=== PATIENT | female | born 1990 | race Caucasian/White ===

== ENCOUNTER 2017-09-18 13:25 | Emergency (ER) | payer OTHER ==
--- NOTE | 2017-09-18 14:27 | ED ---
Female Urogenital HPI - General Chief complaint: Abdominal Pain Stated complaint: abdominal & back pain/18 wks preg Time Seen by Provider: 09/18/17 13:45 Source: patient Mode of arrival: ambulatory Limitations: no limitations - History of Present Illness Initial comments: Patient is a 26-year-old female presenting for abdominal pain. Patient states that she is 18 weeks with a confirmed ultrasound in 10 weeks. She states that over the last couple days, she has been having lower suprapubic abdominal pain which is described as stabbing as well as lower back pain and her urine has been very dark. However, she denies any dysuria as well as fevers or chills. She admits to chronic nausea and vomiting with this but denies any vaginal bleeding or abnormal vaginal discharge. Last Menstrual Period: 05/14/17 - Related Data Home Medications Medication Instructions Recorded Confirmed Acetaminophen [Tylenol 8 Hour] 650 mg PO Q4H PRN 09/18/17 09/18/17 Calcium Carbonate [Tums] 1,000 mg PO Q4H PRN 09/18/17 09/18/17 Docusate [Colace] 100 mg PO QID PRN 09/18/17 09/18/17 Methadone HCl [Methadone Intensol] 60 mg PO DAILY 09/18/17 09/18/17 Ondansetron HCl [Zofran] 8 mg PO Q6H PRN 09/18/17 09/18/17 Ondansetron [Zofran] 4 mg IM Q6H PRN 09/18/17 09/18/17 Drx-Aldz-Dppce Acid 1 cap PO DAILY 09/18/17 09/18/17 [-U Capsule (formulary)] Previous Rx's Medication Instructions Recorded Fluconazole [Diflucan] 150 mg PO DAILY #2 tab 09/18/17 Nitrofurantoin Monohyd/M-Cryst 100 mg PO Q12HR #9 cap 09/18/17 [Macrobid] Allergies Allergy/AdvReac Type Severity Reaction Status Date / Time amoxicillin Allergy Swelling Verified 09/18/17 13:59 cephalexin [From Keflex] Allergy Itching Verified 09/18/17 13:59 Penicillins Allergy Swelling Verified 09/18/17 13:59 sulfamethoxazole Allergy Itching Verified 09/18/17 13:59 [From Bactrim] trimethoprim [From Bactrim] Allergy Itching Verified 09/18/17 13:59 Review of Systems ROS Statement: Those systems with pertinent positive or pertinent negative responses have been documented in the HPI. Constitutional: Negative for chills, fatigue and fever. HENT: Negative for congestion. Respiratory: Negative for chest tightness, shortness of breath and wheezing. Cardiovascular: Negative for chest pain and palpitations. Gastrointestinal: Positive for abdominal pain, nausea/vomiting. Negative for diarrhea or constipation Genitourinary: Negative for dysuria. Negative for vaginal bleeding or discharge Musculoskeletal: Negative for neck pain and neck stiffness. Positive for lower back pain Skin: Negative for color change. Neurological: Negative for dizziness, speech difficulty, weakness and light- headedness. Psychiatric/Behavioral: Negative for agitation and confusion. The patient is not nervous/anxious. ROS Other: All systems not noted in ROS Statement are negative. Past Medical History Past Medical History: No Reported History History of Any Multi-Drug Resistant Organisms: None Reported Past Surgical History: Appendectomy, Orthopedic Surgery Additional Past Surgical History / Comment(s): r arm surg oral Past Psychological History: Depression Smoking Status: Current every day smoker Past Alcohol Use History: None Reported Past Drug Use History: None Reported General Exam - General Exam Comments Initial Comments: Physical Exam Constitutional: Pt is oriented to person, place, and time. Pt appears well- developed and well-nourished. No distress. HENT: Head: Normocephalic and atraumatic. Eyes: EOM are normal. Neck: Normal range of motion. Neck supple. Cardiovascular: Normal rate, regular rhythm, S1 normal, S2 normal and normal heart sounds. Exam reveals no gallop and no friction rub. No murmur heard. Pulmonary/Chest: Effort normal and breath sounds normal. No tachypnea and no bradypnea. No respiratory distress. No wheezes or rales noted. Abdominal: Soft. Bowel sounds are normal. Pt exhibits no shifting dullness, no distension, no pulsatile liver, no fluid wave, no abdominal bruit and no ascites. There is no tenderness. There is no rigidity, no rebound, no guarding, no tenderness at McBurney's point and negative Franklin's sign. Musculoskeletal: Normal range of motion. Neurological: Pt is alert and oriented to person, place, and time. No cranial nerve deficit. Skin: Skin is warm and dry. No rash noted. He is not diaphoretic. No erythema. No pallor. Psychiatric: He has a normal mood and affect. His behavior is normal. Thought content normal. Limitations: no limitations Course Vital Signs 09/18/17 09/18/17 09/18/17 13:36 15:59 17:15 Temperature 98.0 F 97.2 F L Pulse Rate 88 65 64 Respiratory 18 16 16 Rate Blood Pressure 120/71 98/46 115/60 O2 Sat by Pulse 97 99 100 Oximetry Medical Decision Making - Medical Decision Making Laboratory studies revealed that there is a significant transaminitis with AST measuring 218 and ALT measuring 260. This is discussed with the patient and she stated that she knew about this and has been told that she has hepatitis C. Additionally, urinalysis was positive for an infection although contaminated but because the patient is , she will be given Macrobid. Ultrasound was performed above the abdomen and the fetus and heart tones were noted and heart rate was noted to be higher than 130 bpm. Ultrasound evaluation did show some sludge but study was limited. Patient was evaluated multiple times and noted to be resting in bed comfortably in no acute distress. It is felt that because she knows the etiology of the transaminitis, she could be safely discharged with follow-up from gastroenterology.Explained all labs and diagnostic test results and that we will discharge the patient home and patient is to follow up with PCP in 1-2 days and return to the ED if symptoms worsen. Pt is agreeable to plan. - Lab Data Result diagrams: 09/18/17 14:13 09/18/17 14:13 Lab Results 09/18/17 09/18/17 09/18/17 Range/Units 14:13 14:13 14:13 WBC 8.9 (3.8-10.6) k/uL RBC 3.88 (3.80-5.40) m/uL Hgb 12.1 (11.4-16.0) gm/dL Hct 35.7 (34.0-46.0) % MCV 92.2 (80.0-100.0) fL MCH 31.1 (25.0-35.0) pg MCHC 33.8 (31.0-37.0) g/dL RDW 12.1 (11.5-15.5) % Plt Count 255 (150-450) k/uL Neutrophils % 70 % Lymphocytes % 24 % Monocytes % 4 % Eosinophils % 1 % Basophils % 0 % Neutrophils # 6.2 (1.3-7.7) k/uL Lymphocytes # 2.1 (1.0-4.8) k/uL Monocytes # 0.3 (0-1.0) k/uL Eosinophils # 0.1 (0-0.7) k/uL Basophils # 0.0 (0-0.2) k/uL Sodium 137 (137-145) mmol/L Potassium 4.1 (3.5-5.1) mmol/L Chloride 103 (98-107) mmol/L Carbon Dioxide 25 (22-30) mmol/L Anion Gap 9 mmol/L BUN 4 L (7-17) mg/dL Creatinine 0.53 (0.52-1.04) mg/dL Est GFR (MDRD) Af Amer >60 (>60 ml/min/1.73 sqM) Est GFR (MDRD) Non-Af >60 (>60 ml/min/1.73 sqM) Glucose 81 (74-99) mg/dL Calcium 9.1 (8.4-10.2) mg/dL Magnesium 1.7 (1.6-2.3) mg/dL Total Bilirubin 0.3 (0.2-1.3) mg/dL AST 218 H (14-36) U/L ALT 260 H (9-52) U/L Alkaline Phosphatase 77 (38-126) U/L Total Protein 5.9 L (6.3-8.2) g/dL Albumin 3.3 L (3.5-5.0) g/dL Urine Color Urine Appearance (Clear) Urine pH (5.0-8.0) Ur Specific [place] (1.001-1.035) Urine Protein (Negative) Urine Glucose (UA) (Negative) Urine Ketones (Negative) Urine Blood (Negative) Urine Nitrite (Negative) Urine Bilirubin (Negative) Urine Urobilinogen (<2.0) mg/dL Ur Leukocyte Esterase (Negative) Urine RBC (0-5) /hpf Urine WBC (0-5) /hpf Ur Squamous Epith Cells (0-4) /hpf Urine Bacteria (None) /hpf Urine Mucus (None) /hpf Blood Type O Positive Blood Type Recheck No Antibody Screen NEGATIVE Spec Expiration Date 09/21/2017 - 231209/18/17 Range/Units 14:13 WBC (3.8-10.6) k/uL RBC (3.80-5.40) m/uL Hgb (11.4-16.0) gm/dL Hct (34.0-46.0) % MCV (80.0-100.0) fL MCH (25.0-35.0) pg MCHC (31.0-37.0) g/dL RDW (11.5-15.5) % Plt Count (150-450) k/uL Neutrophils % % Lymphocytes % % Monocytes % % Eosinophils % % Basophils % % Neutrophils # (1.3-7.7) k/uL Lymphocytes # (1.0-4.8) k/uL Monocytes # (0-1.0) k/uL Eosinophils # (0-0.7) k/uL Basophils # (0-0.2) k/uL Sodium (137-145) mmol/L Potassium (3.5-5.1) mmol/L Chloride (98-107) mmol/L Carbon Dioxide (22-30) mmol/L Anion Gap mmol/L BUN (7-17) mg/dL Creatinine (0.52-1.04) mg/dL Est GFR (MDRD) Af Amer (>60 ml/min/1.73 sqM) Est GFR (MDRD) Non-Af (>60 ml/min/1.73 sqM) Glucose (74-99) mg/dL Calcium (8.4-10.2) mg/dL Magnesium (1.6-2.3) mg/dL Total Bilirubin (0.2-1.3) mg/dL AST (14-36) U/L ALT (9-52) U/L Alkaline Phosphatase (38-126) U/L Total Protein (6.3-8.2) g/dL Albumin (3.5-5.0) g/dL Urine Color Yellow Urine Appearance Cloudy H (Clear) Urine pH 6.5 (5.0-8.0) Ur Specific [place] 1.010 (1.001-1.035) Urine Protein Trace H (Negative) Urine Glucose (UA) Negative (Negative) Urine Ketones Negative (Negative) Urine Blood Large H (Negative) Urine Nitrite Negative (Negative) Urine Bilirubin Negative (Negative) Urine Urobilinogen <2.0 (<2.0) mg/dL Ur Leukocyte Esterase Large H (Negative) Urine RBC 125 H (0-5) /hpf Urine WBC 53 H (0-5) /hpf Ur Squamous Epith Cells 46 H (0-4) /hpf Urine Bacteria Occasional H (None) /hpf Urine Mucus Occasional H (None) /hpf Blood Type Blood Type Recheck Antibody Screen Spec Expiration Date Disposition Clinical Impression: Urinary tract infection affecting Disposition: OTHER INSTITUTION NOT DEFINED Condition: Good Instructions: Urinary Tract Infection in (ED) Prescriptions: Fluconazole [Diflucan] 150 mg PO DAILY #2 tab Nitrofurantoin Monohyd/M-Cryst [Macrobid] 100 mg PO Q12HR #9 cap Referrals: None,Stated [Primary Care Provider] - 1-2 days Amanda Morin MD [STAFF PHYSICIAN] - 1-2 days Joan Vasquez DO [Doctor of Osteopathic Medicine] - 1-2 days Time of Disposition: 16:52 - Out of Hospital Transfer - Req. Specs Out of Hospital Transfer - Requested Specifics: Other Non-Acute ([facility])
[2017-09-18 14:34] LABS: Appearance,Urine Cloudy (Clear); Bacteria,Urine Occasional /hpf; Bilirubin,Urine Negative (Negative); Blood,Urine Large (Negative); Color,Urine Yellow; Glucose,Urine (UA) Negative (Negative); Ketones,Urine Negative (Negative); Leukocyte Esterase,Urine Large (Negative); Mucus,Urine Occasional /hpf; Nitrite,Urine Negative (Negative); PH, Urine 6.5 (5.0-8.0); Protein,Urine Trace (Negative); RBC,Urine 125 /hpf (0-5); Squamous Epithelial Cell,Urine 46 /hpf (0-4); Urobilinogen,Urine <2.0 mg/dL (<2.0); WBC,Urine 53 /hpf (0-5)
[2017-09-18 14:36] LABS: Basophils % (A) 0 %; Eosinophils # (A) 0.1 k/uL (0-0.7); Eosinophils % (A) 1 %; HCT 35.7 % (34.0-46.0); HGB 12.1 gm/dL (11.4-16.0); Lymphocytes # (A) 2.1 k/uL (1.0-4.8); Lymphocytes % (A) 24 %; MCH 31.1 pg (25.0-35.0); MCHC 33.8 g/dL (31.0-37.0); MCV 92.2 fL (80.0-100.0); Monocytes # (A) 0.3 k/uL (0-1.0); Monocytes % (A) 4 %; Neutrophils # (A) 6.2 k/uL (1.3-7.7); Neutrophils % (A) 70 %; Platelet Count 255 k/uL (150-450); RBC 3.88 m/uL (3.80-5.40); RDW 12.1 % (11.5-15.5); WBC 8.9 k/uL (3.8-10.6)
[2017-09-18 14:41] LABS: ALT 260 U/L (9-52); AST 218 U/L (14-36); Albumin 3.3 g/dL (3.5-5.0); Alkaline Phosphatase 77 U/L (38-126); Anion Gap 9 mmol/L; Blood Urea Nitrogen 4 mg/dL (7-17); Calcium 9.1 mg/dL (8.4-10.2); Carbon Dioxide 25 mmol/L (22-30); Chloride 103 mmol/L (98-107); Glucose 81 mg/dL (74-99); Magnesium 1.7 mg/dL (1.6-2.3); Potassium 4.1 mmol/L (3.5-5.1); Sodium 137 mmol/L (137-145); Total Bilirubin 0.3 mg/dL (0.2-1.3); Total Protein 5.9 g/dL (6.3-8.2)
--- NOTE | 2017-09-18 15:56 | US ---
EXAMINATION TYPE: US abdomen limited DATE OF EXAM: 09/18/2017 COMPARISON: NONE CLINICAL HISTORY: Elevated LFTS - evaluation of liver and gallbladder. Patient is not NPO EXAM MEASUREMENTS: Liver Length: 15.9 cm Gallbladder Wall: 0.2 cm CHD: 0.4 cm Right Kidney: 11.6 x 5.3 x 5.3 cm Pancreas: Body and tail obscured by overlying bowel gas Liver: wnl Gallbladder: Internal mobile echogenic echoes which could represent sludge Evidence for sonographic Franklin's sign: neg CHD: wnl Right Kidney: wnl There is no ascites. IMPRESSION: Possible tumefactive sludge or stones within the gallbladder. Some limitations in the [place]
[2017-09-18 16:00] VITALS: RESP 16
--- NOTE | 2017-09-18 16:01 | US ---
EXAMINATION TYPE: US OB >= 14 wk fetus second trimester DATE OF EXAM: 09/18/2017 COMPARISON: None CLINICAL HISTORY: Pain Pain, no bleeding TECHNIQUE: Transabdominal (TA) emergently GESTATIONAL AGE / DATING Physician Established: (18 weeks/1 days) EDC: 02/18/2018 Dates by Current Scan: (18 weeks/2 days) EDC: 02/17/2018 SURVEY IUP: Single PLACENTA: Anterior PREVIA: No Previa YOSI: 11.7 cm Normal CERVICAL LENGTH (transabdominal: norm > 3.0cm): 4.3 cm BIOMETRY PRESENTATION: Variable LIE: Transverse with head maternal Rt BPD: 4.0 cm 18 weeks / 1 days HC: 15.1 cm 18 weeks / 1 days AC: 13.2 cm 18 weeks / 5 days FL: 2.7 cm 18 weeks / 1 days ESTIMATED WEIGHT IN GRAMS: 238.4 grams ESTIMATED WEIGHT IN LBS/OZ: 0 lbs. 8 oz. WEIGHT PERCENTAGE BASED ON ESTABLISHED DATES: 61.9% HC/AC: 1.1 Normal FL/AC: 20.4 HEART RATE: 129 bpm RHYTHM: Normal Live single IUP measuring 18 weeks 2 days. Single live intrauterine gestation is seen. Variable prese ntation to fetus is noted. Amniotic fluid index is within normal limits. There is no ultrasound evide nce for placenta previa. biometry measurements are concordant and felt within normal limits. IMPRESSION: As above, no complication is evident
[2017-09-18] MEDS ORDERED: NITROFURANTOIN MONOHYD/M-CRYST 100 MG CAP PO STA (16:45)
[2017-09-18 17:16] VITALS: BP 115/60; PULSE 64; TEMP 97.2
== END 2017-09-18 17:24 | disposition other institution (70) ==
LOC: EC 13:25
DX: O23.42 Unspecified infection of urinary tract in pregnancy, second trimester (principal); O26.892 Other specified pregnancy related conditions, second trimester; R10.30 Lower abdominal pain, unspecified; O99.89 Other specified diseases and conditions complicating pregnancy, childbirth and the puerperium; R74.0 Nonspecific elevation of levels of transaminase and lactic acid dehydrogenase [LDH]; M54.5 Low back pain; O99.332 Smoking (tobacco) complicating pregnancy, second trimester; F17.200 Nicotine dependence, unspecified, uncomplicated; Z86.19 Personal history of other infectious and parasitic diseases; Z3A.18 18 weeks gestation of pregnancy; Z79.899 Other long term (current) drug therapy; Z88.0 Allergy status to penicillin; Z88.2 Allergy status to sulfonamides; Z88.1 Allergy status to other antibiotic agents
CPT/HCPCS: 36415; 76705; 76805; 80053; 81001; 83735; 85025; 86850; 86900; 86901; 87086; 99285